=== PATIENT | male | born 1955 | race Caucasian/White ===

== ENCOUNTER 2023-03-30 09:34 | Inpatient (IN) ==
[2023-03-26 17:43] LABS: Appearance,Urine CLEAR (Clear); Bilirubin,Urine Negative (Negative); Color,Urine YELLOW; Culture Indicated,Urine No; Glucose,Urine (UA) >=500 mg/dL (Negative); Ketones,Urine Negative (Negative); Leukocyte Esterase,Urine Negative /uL (Negative); Mucus,Urine FEW /hpf; Nitrate,Urine Negative (Negative); Protein,Urine Negative (Negative); Specific Gravity,Urine 1.028 (1.000-1.035); Urine Blood Negative (Negative); Urine RBC 0 /hpf (0-3); Urine Squamous Epithelial Cell 0 /hpf (0-4); Urine WBC 1 /hpf (0-4); Urobilinogen,Urine Negative
[2023-03-26 17:51] LABS: Basophils # (Auto) 0.05 K/mcL (0.00-0.30); Basophils % (Auto) 0.6 % (0.0-2.0); Eosinophils % (Auto) 1.2 % (0.0-7.0); Hematocrit 41.1 % (40.1-51.0); Hemoglobin 13.1 g/dL (13.7-17.5); Lymphocytes # (Auto) 1.23 K/mcL (1.50-4.80); Lymphocytes % (Auto) 15.3 % (15.5-49.0); Mean Cell Volume 86.3 fL (80.0-100.0); Mean Corpuscular HGB Conc 31.9 g/dL (31.0-36.0); Mean Platelet Volume 9.8 fL (8.8-12.5); Monocytes # (Auto) 0.47 K/mcL (0.10-0.90); Monocytes % (Auto) 5.9 % (1.0-12.0); Neutrophils % (Auto) 76.8 % (38.0-78.0); Platelet Count 302 K/mcL (140-440); RBC 4.76 M/mcL (4.63-6.08); Red Cell Distribution Width 13.3 % (11.5-14.5)
[2023-03-26 17:55] LABS: Blood Urea Nitrogen 21 mg/dL (8-23); Calcium 9.6 mg/dL (8.6-10.4); Carbon Dioxide 30 mmol/L (22-30); Chloride 99 mmol/L (96-108); Glomerular Filtration Rate 52; Glucose 106 mg/dL (70-105)
[~2023-03-30 09:34] MED LIST: IPRATROPIUM/ALBUTEROL 3 ML AMPUL.NEB NEB PRN; SCOPOLAMINE 1 PATCH PATCH TOPICAL PRN
[2023-03-30] MEDS: MEROPENEM 1 GM in 0.9 % SODIUM CHLORIDE 50 ML IV SCH ×2 (10:58→21:39)
[2023-03-30] MEDS ORDERED: GLYCOPYRROLATE 0.2 MG/ML VIAL IV ONE (11:05)
[2023-03-30] MEDS ORDERED: KETAMINE 50 MG/ML Syringe IV ONE (11:05)
[2023-03-30] MEDS ORDERED: TRANEXAMIC ACID 1,000 MG/10 ML VIAL ONE (11:05)
[2023-03-30] MEDS ORDERED: ePHEDrine 50 MG/5 ML SYRINGE (ANEST) IV ONE (11:05)
[2023-03-30] MEDS ORDERED: HYDROmorphone 1 MG/ML SYRINGE ONE (11:05)
[2023-03-30] MEDS ORDERED: DEXAMETHASONE 10 MG/ML VIAL ONE (11:05)
[2023-03-30] MEDS ORDERED: ONDANSETRON 4 MG/2 ML VIAL ONE (11:05)
[2023-03-30] MEDS ORDERED: PHENYLephrine 1 MG/10 ML SYRINGE (ANEST) ONE (11:05)
[2023-03-30] MEDS ORDERED: PROPOFOL 200 MG/20 ML VIAL IV ONE (11:05)
[2023-03-30] MEDS ORDERED: LIDOCAINE HCL/PF 100 MG/5 ML SYRINGE IV ONE (11:05)
[2023-03-30] MEDS ORDERED: MAGNESIUM SULFATE 2 GM/50 ML BAG IV ONE (11:05)
[2023-03-30] MEDS ORDERED: GENTAMICIN SULFATE 800 MG/20 ML VIAL IR ONE (14:42)
[2023-03-30] MEDS ORDERED: VANCOMYCIN 1 GM VIAL TOPICAL SCH (14:45)
[2023-03-30] MEDS ORDERED: METHOCARBAMOL 1,000 MG/10 ML VIAL IV PRN (15:41)
[2023-03-30] MEDS ORDERED: MEPERIDINE 25 MG/ML VIAL IV PRN (15:41)
[2023-03-30] MEDS ORDERED: ONDANSETRON 4 MG/2 ML VIAL IV PRN ×2 (15:41→15:53)
[2023-03-30] MEDS ORDERED: IPRATROPIUM/ALBUTEROL 3 ML AMPUL.NEB NEB PRN (15:41)
[2023-03-30] MEDS ORDERED: PROMETHAZINE 25 MG/ML VIAL IV PRN (15:41)
[2023-03-30] MEDS ORDERED: NALOXONE HCL 0.4 MG/ML VIAL IV PRN (15:41)
[2023-03-30] MEDS ORDERED: LACTATED RINGERS 250 ML IV PRN (15:41)
[2023-03-30] MEDS ORDERED: HYDROmorphone 0.5 MG/0.5 ML SYRINGE IV PRN (15:41)
[2023-03-30] MEDS ORDERED: diphenhydrAMINE 50 MG/ML VIAL IV PRN (15:41)
[2023-03-30] MEDS ORDERED: ACETAMINOPHEN 1,000 MG/100 ML BAG IV ONE (15:41)
[2023-03-30] MEDS ORDERED: LACTATED RINGERS 1,000 ML IV SCH (15:45)
[2023-03-30] MEDS ORDERED: BENZOCAINE/MENTHOL 1 LOZENGE PO PRN (15:53)
[2023-03-30] MEDS ORDERED: MAGNESIUM HYDROXIDE 30 ML ORAL.SUSP PO PRN (15:53)
[2023-03-30] MEDS ORDERED: FLEETS ADULT ENEMA PR PRN (15:53)
[2023-03-30] MEDS ORDERED: BISACODYL 10 MG SUPP.RECT PR PRN (15:53)
[2023-03-30] MEDS ORDERED: TRANEXAMIC ACID 1,000 MG/10 ML VIAL IV ONE (15:53)
[2023-03-30] MEDS ORDERED: POLYETHYLENE GLYCOL 3350 17 GM PACKET PO PRN (15:53)
[2023-03-30] MEDS ORDERED: morphine 4 MG/ML VIAL IV PRN (15:58)
[2023-03-30] MEDS ORDERED: ONDANSETRON 4 MG ODT TABLET SL PRN (15:58)
[2023-03-30] MEDS ORDERED: MEROPENEM 0.5 GM in 0.9 % SODIUM CHLORIDE 50 ML IV SCH (16:15)
[2023-03-30] MEDS ORDERED: [UNRECOGNIZED DRUG - OTHER] IR ONE (16:58)
[2023-03-30] MEDS ORDERED: LACTATED RINGERS 500 ML IV ONE (17:03)
[2023-03-30 17:14] LABS: POC Calcium, Ionized 1.08 (1.16-1.32); POC Creatinine 1.6 (0.6-1.2); POC Potassium 3.9 (3.3-5.1)
[2023-03-30] MEDS: fentaNYL 100 MCG/2 ML VIAL IV PRN ×4 (17:19→17:32)
[2023-03-30] MEDS: LACTATED RINGERS 1,000 ML IV SCH (19:28)
[2023-03-30] MEDS: OMEPRAZOLE 20 MG CAPSULE PO SCH (19:35)
[2023-03-30] MEDS: ASPIRIN 81 MG TAB.CHEW PO SCH (21:33)
[2023-03-30] MEDS: DOCUSATE SODIUM 100 MG CAPSULE PO SCH (21:33)
[2023-03-30] MEDS: oxyCODONE/APAP 5/325MG TABLET PO PRN (21:34)
[2023-03-30] MEDS: SENNOSIDES 1 TABLET PO SCH (21:34)
[2023-03-30] MEDS: ATORVASTATIN 20 MG TABLET PO SCH (21:34)
[2023-03-30] MEDS: 0.9 % SODIUM CHLORIDE 10 ML SYRINGE IV SCH (21:46)
[2023-03-31] MEDS: LACTATED RINGERS 1,000 ML IV SCH ×3 (00:27→17:09)
[2023-03-31] MEDS: oxyCODONE/APAP 5/325MG TABLET PO PRN ×3 (01:56→14:17)
[2023-03-31] MEDS: MEROPENEM 1 GM in 0.9 % SODIUM CHLORIDE 50 ML IV SCH ×3 (06:10→21:34)
[2023-03-31] MEDS: 0.9 % SODIUM CHLORIDE 10 ML SYRINGE IV SCH ×5 (06:17→22:21)
[2023-03-31 06:46] LABS: Hematocrit 28.2 % (40.1-51.0)
[2023-03-31 06:47] LABS: Hemoglobin 9.1 g/dL (13.7-17.5)
[2023-03-31] MEDS: METHOCARBAMOL 750 MG TABLET PO PRN (07:59)
[2023-03-31] MEDS: OMEPRAZOLE 20 MG CAPSULE PO SCH ×2 (07:59→17:08)
[2023-03-31] MEDS ORDERED: 0.9 % SODIUM CHLORIDE 10 ML SYRINGE IV PRN (08:12)
[2023-03-31] MEDS ORDERED: LOSARTAN/HCTZ 100/25 TABLET PO SCH (09:00)
[2023-03-31] MEDS: ASPIRIN 81 MG TAB.CHEW PO SCH ×2 (10:04→21:31)
[2023-03-31] MEDS: DOCUSATE SODIUM 100 MG CAPSULE PO SCH ×2 (10:04→21:31)
[2023-03-31] MEDS: FENOFIBRATE 43 MG CAPSULE PO SCH (10:04)
[2023-03-31] MEDS: EZETIMIBE 10 MG TABLET PO SCH (10:05)
[2023-03-31] MEDS: METOPROLOL TARTRATE 50 MG TABLET PO SCH (10:06)
[2023-03-31] MEDS: HYDROCHLOROTHIAZIDE 25 MG TABLET PO SCH (10:06)
[2023-03-31] MEDS: LOSARTAN 50 MG TABLET PO SCH (10:06)
[2023-03-31] MEDS: SENNOSIDES 1 TABLET PO SCH (21:30)
[2023-03-31] MEDS: ATORVASTATIN 20 MG TABLET PO SCH (21:31)
[2023-04-01] MEDS: oxyCODONE/APAP 5/325MG TABLET PO PRN ×3 (02:04→15:22)
[2023-04-01] MEDS: METHOCARBAMOL 750 MG TABLET PO PRN (02:04)
[2023-04-01] MEDS: LACTATED RINGERS 1,000 ML IV SCH ×2 (02:16→08:03)
[2023-04-01] MEDS: 0.9 % SODIUM CHLORIDE 10 ML SYRINGE IV SCH ×2 (06:15→08:24)
[2023-04-01] MEDS: MEROPENEM 1 GM in 0.9 % SODIUM CHLORIDE 50 ML IV SCH ×2 (06:15→15:22)
[2023-04-01 06:59] LABS: Hemoglobin 7.6 g/dL (13.7-17.5)
[2023-04-01] MEDS: ASPIRIN 81 MG TAB.CHEW PO SCH (07:56)
[2023-04-01] MEDS: DOCUSATE SODIUM 100 MG CAPSULE PO SCH (07:56)
[2023-04-01] MEDS: OMEPRAZOLE 20 MG CAPSULE PO SCH (07:56)
[2023-04-01] MEDS: FENOFIBRATE 43 MG CAPSULE PO SCH (07:56)
[2023-04-01] MEDS: METOPROLOL TARTRATE 50 MG TABLET PO SCH (07:56)
[2023-04-01] MEDS: HYDROCHLOROTHIAZIDE 25 MG TABLET PO SCH (07:56)
[2023-04-01] MEDS: LOSARTAN 50 MG TABLET PO SCH (07:57)
[2023-04-01] MEDS: EZETIMIBE 10 MG TABLET PO SCH (08:09)
== END 2023-04-01 17:00 | disposition home or self-care (01) | DRG 468 ==
LOC: MEDSUR 09:34
PROVIDERS: ADMIT Orthopaedic Surgery Sports Medicine; ATTEND Orthopaedic Surgery Sports Medicine